=== PATIENT | female | born 1960 | race Caucasian/White ===

== ENCOUNTER 2021-12-29 08:55 | Outpatient (CLI) | payer OTHER, SELFPAY | END 2021-12-29 08:56 | disposition home or self-care (01) | LOC: INJ CL 08:56 | PROVIDERS: Visit Provider Family Medicine | DX: M48.062 Spinal stenosis, lumbar region with neurogenic claudication (principal); M54.16 Radiculopathy, lumbar region; M51.36 Other intervertebral disc degeneration, lumbar region | CPT/HCPCS: 62323; J0702; Q9966 ==